=== PATIENT | male | born 1945 | race Caucasian/White ===

== ENCOUNTER 2017-11-16 14:19 | Emergency (ER) | payer OTHER ==
[~2017-11-16] VITALS: Ht 180.3 cm; Wt 122.5 kg
[2017-11-16 14:34] VITALS: Ht 180.3 cm; Wt 122.5 kg
[2017-11-16 16:01] VITALS: BP 127/57
== END 2017-11-16 16:01 | disposition home or self-care (01) ==
LOC: ED 14:19
DX: J11.1 Influenza due to unidentified influenza virus with other respiratory manifestations (principal); H66.92 Otitis media, unspecified, left ear; E11.9 Type 2 diabetes mellitus without complications
CPT/HCPCS: Q0092

== ENCOUNTER 2019-09-04 01:04 | Inpatient (IN) | payer OTHER ==
[~2019-09-04] VITALS: Ht 180.3 cm; Wt 109.8 kg
[2019-09-04 01:48] LABS: BASOPHIL % 0.7 % (0-2); PLATELET COUNT 315 x10^3mcL (130-400)
[2019-09-04 01:58] LABS: RED CELL DISTRIBUTION WIDTH 16.6 % (11.5-14.5)
[2019-09-04 02:15] LABS: CALCIUM 8.4 mg/dL (8.5-10.1); CARBON DIOXIDE 25.6 mmol/L (21-32); CHLORIDE SERUM 90 mmol/L (98-107); CREATININE SERUM 1.4 mg/dL (0.7-1.3); GLUCOSE SERUM 134 mg/dL (74-106); POTASSIUM SERUM 4.6 mmol/L (3.5-5.1); SODIUM SERUM 126 mmol/L (136-145)
[2019-09-04 02:20] LABS: ALKALINE PHOSPHATASE 495 U/L (46-116); ALT/SGPT 310 U/L (16-63); AST/SGOT 209 U/L (15-37); BILIRUBIN TOTAL 0.44 mg/dL (0.20-1.00); LIPASE 237 IU/L (73-393); TOTAL PROTEIN, SERUM 6.7 g/dL (6.4-8.2)
[2019-09-04 02:21] LABS: ALBUMIN 2.5 g/dL (3.4-5.0)
[2019-09-04] MEDS ORDERED: ZOCOR20 MG PO (03:40)
[2019-09-04] MEDS ORDERED: METFORMIN HYDR500 M1 PO (03:44)
[2019-09-04] MEDS ORDERED: METFORMIN HYD1000 M2 PO (03:47)
[2019-09-04] MEDS ORDERED: MICARDIS40 MG PO (03:48)
[2019-09-04] MEDS ORDERED: NIASPAN1000 MG PO (03:48)
[2019-09-04] MEDS ORDERED: CABOMETYX60 MG PO (03:50)
[2019-09-04] MEDS ORDERED: PHARMASSURE VI500 MG PO (03:50)
[2019-09-04] MEDS ORDERED: D-10001 TAB PO (03:53)
[2019-09-04] MEDS ORDERED: MASON NATURAL1200 MG PO (03:54)
[2019-09-04] MEDS ORDERED: FLO4 PO (03:55)
[2019-09-04] MEDS ORDERED: BAYER ASPIRIN C81 MG PO (03:55)
[2019-09-04] MEDS ORDERED: ALLERGY RELIEF10 M2 PO (03:56)
[2019-09-04] MEDS ORDERED: LIDOCAINE AND P1 CRE TOP (03:57)
[2019-09-04] MEDS ORDERED: [UNRECOGNIZED DRUG - OTHER] PO (03:58)
[2019-09-04 05:02] VITALS: BP 118/61
[2019-09-04 07:23] LABS: CALCIUM 7.5 mg/dL (8.5-10.1); CARBON DIOXIDE 27.3 mmol/L (21-32); CHLORIDE SERUM 95 mmol/L (98-107); CREATININE SERUM 1.3 mg/dL (0.7-1.3); GLUCOSE SERUM 116 mg/dL (74-106); POTASSIUM SERUM 4.2 mmol/L (3.5-5.1); SODIUM SERUM 129 mmol/L (136-145)
[2019-09-04 08:03] LABS: BASOPHIL % 0.7 % (0-2); PLATELET COUNT 290 x10^3mcL (130-400)
[2019-09-04 08:11] LABS: RED CELL DISTRIBUTION WIDTH 16.8 % (11.5-14.5)
[2019-09-04 08:55] VITALS: BP 128/62
[2019-09-04 12:32] VITALS: BP 115/53
[2019-09-04 16:43] VITALS: BP 115/53
[2019-09-04 16:45] VITALS: BP 139/71
== END 2019-09-04 17:47 | disposition home or self-care (01) | DRG 641 ==
LOC: ED 01:04 → DU 02:52
PROVIDERS: Emergency Medicine; ADMIT Internal Medicine
DX: E87.1 Hypo-osmolality and hyponatremia (principal); C64.9 Malignant neoplasm of unspecified kidney, except renal pelvis; C78.00 Secondary malignant neoplasm of unspecified lung; I10 Essential (primary) hypertension; E78.5 Hyperlipidemia, unspecified; E11.9 Type 2 diabetes mellitus without complications; Z79.899 Other long term (current) drug therapy; Z90.5 Acquired absence of kidney
CPT/HCPCS: G0378; J1644; J2270; J2405; J7030